=== PATIENT | female | born 1960 | race Caucasian/White ===

== ENCOUNTER 2017-07-22 12:02 | Emergency (ER) | payer OTHER ==
[~2017-07-22] VITALS: Ht 160 cm; Wt 64.4 kg
[2017-07-22 12:22] VITALS: BP 143/77
--- NOTE | 2017-07-22 12:30 | NUR ---
gave report to IVELISSE Og.
--- NOTE | 2017-07-22 12:33 | NUR ---
PT. CAME INTO THE ED W/ C/O VAGINAL PAIN X 2 DAYS. PT STATES, " ON SUNDAY I WENT TO THE [facility] IN [place] DUE TO STOMACH PAIN ON THE LEFT SIDE, HE TOLD ME I NEEDED A PHYSICAL AND PAP SMEAR , I TOLD THE DOCTOR THAT I HAD JUST HAD A PAP SMEAR 3 MONTHS AGO, HE SAID I STILL NEEDED IT, I REQUESTED THAT A FEMALE DOCTOR DO IT BECAUSE I FELT MORE COMFORTABLE LIKE THAT, HE GOT UPSET AND LEFT. A FEMALE DOCTOR CAME INTO THE ROOM AND DID MY PAP SMEAR WHILE THE MALE DOCTOR WAS STILL IN THE ROOM, I FELT A LITTLE DISCOMFORT BUT NO PAIN, WHEN SHE FINISHED SHE WAS IN THE SIDE CHARTING IN THE COMPUTER AND THEN I SAW DR. DALLIN MILLIGAN COME AND INSERTED 3 FINGERS IN MY VAGINA, I DIDNT SEE IF HE HAD GLOVES OR NOT AND I FELT SO MUCH PAIN I SCREAMED OUT IN PAIN, THE FEMALE DOCTOR EVEN LOOKED BACK AND HAD A LOOK ON HER FACE OF BEING SURPRISED. SINCE THEN I HAVE HAD A LOT OF PAIN IN MY VAGINA, WHEN I URINATE IT JENNINGS AND HURTS AND MY LOWER ABD HURTS AND IM SO BLOATED. I HAVE NOT STOPPED BLEEDING SINCE SUNDAY AND I HAVE TO CHANGE MY FEMININE PRODUCT EVERY 2-3 HOURS, BLOOD CLOTS COME OUT AND I HAD MENOPAUSE IN 2012, IM JUST REALLY CONCERNED". PT. IS AAOX4, RR EVEN AND UNLABORED, DENIES N/V/D. DENIES SOB, CHEST PAIN. 08/28 PAIN IN LOWER ABD AND VAGINA DESCRIBED BURNING AND SHARP. C/O PAIN UPON URINATION. ER NOTIFIED, WILL CONTINUE TO MONITOR.
[2017-07-22] MEDS ORDERED: IBUPROFEN 600 MG TAB PO ONE (12:55)
[2017-07-22] MEDS ORDERED: ACETAMINOPHEN EXTRA STRENGTH 500 MG TAB PO ONE (12:55)
--- NOTE | 2017-07-22 12:56 | NUR ---
CALLED [facility] AND REPORTED THE INCIDENT THAT HAPPENED AT THE MEDICAL CLINIC ON SUNDAY, PER KATIE " HAVE THE PATIENT COME INTO THE POLICE DEPARTMENT TO FILE A REPORT". INDERJIT RODRIGEZ NOTIFIED.
[2017-07-22 13:28] LABS: APPEARANCE,URINE CLEAR (CLEAR); BILIRUBIN,URINE NEGATIVE (NEGATIVE); BLOOD, URINE 2+ (NEGATIVE); COLOR,URINE YELLOW (YELLOW); LEUKOCYTE ESTERASE ,URINE TRACE (NEGATIVE); NITRITE, URINE NEGATIVE (NEGATIVE); UGLUCOSE NEGATIVE (NEGATIVE)
[2017-07-22 13:46] LABS: RBC,URINE 0-5 (RARE) /HPF (0-5); WBC,URINE 0-5 (RARE) /HPF (0-5)
--- NOTE | 2017-07-22 14:06 | NUR ---
PT. RESTING COMFORTABLY IN BED, RR EVEN AND UNLABORED, BED IN LOWEST POSITION. WILL CONTINUE TO MONITOR.
--- NOTE | 2017-07-22 15:30 | NUR ---
PT. IN BED RESTING COMFORTABLY W/ FAMILY MEMBER AT BEDSIDE, WILL CONTINUE TO MONITOR.
[2017-07-22 17:18] VITALS: BP 130/74
--- NOTE | 2017-07-22 17:18 | NUR ---
Patient discharged with v/s stable. Written and verbal after care instructions given and explained. Patient alert, oriented and verbalized understanding of instructions. Ambulatory with steady gait. All questions addressed prior to discharge. ID band removed. Patient advised to follow up with PMD. Rx of IBUPROFEN AND TYLENOL given. Patient educated on indication of medication including possible reaction and side effects. Opportunity to ask questions provided and answered.
[2017-07-24 06:20] LABS: CHLAMYDIA TRACHOMATIS AMP DNA Negative (Negative)
== END 2017-07-22 17:18 | disposition home or self-care (01) ==
LOC: MED 12:02
DX: N93.9 Abnormal uterine and vaginal bleeding, unspecified (principal); R10.2 Pelvic and perineal pain
CPT/HCPCS: 36415; 76856; 81001; 81025; 87491; 99285; Q0092